=== PATIENT | male | born 2000 | race Caucasian/White ===

== ENCOUNTER 2022-01-27 12:26 | Emergency (ER) | payer OTHER, SELFPAY ==
[2022-01-27 12:26] VITALS: BP 146/93; PULSE 115; RESP 16; TEMP 36.7; O2SAT 98; BMI 38.2
--- NOTE | 2022-01-27 12:45 | CT_ITS ---
EXAM: CT MAXILLOFACIAL WITHOUT INTRAVENOUS CONTRAST CLINICAL INDICATION: Nasal Trauma TECHNIQUE: Helically acquired images were obtained of the face without intravenous contrast. This CT exam was performed using one or more of the following dose reduction techniques: automated exposure control, adjustment of the mA and/or kV according to patient size, and/or use of iterative reconstruction technique. This report was created using [employer] report generation technology. RADIATION DOSE: CTDIvol = 25.01 mGy, DLP = 573.67 mGy-cm COMPARISON: None. FINDINGS: BONES/JOINTS: Unremarkable. No displaced fracture. No discrete lytic or blastic abnormalities. SOFT TISSUES: Unremarkable. No focal subcutaneous swelling. No discrete fluid collections. ORBITS: Unremarkable. Both globes are unremarkable. Extraocular muscles are normal. Retrobulbar fat appears unremarkable. SINUSES: Mild mucosal thickening in the posterior wall of the sphenoid sinuses. Normal remaining paranasal sinuses. MASTOID AIR CELLS: Unremarkable as visualized. Clear. DENTAL: No acute findings. No periodontal osseous erosion. CT/Sinus/Facial Bone IMPRESSION: No acute fracture of the nasal bones and maxillofacial bones. Electronically Signed: Rojas Celis MD at 13:13 EDT ,
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
[2022-01-27 14:25] VITALS: PULSE 77; RESP 16; O2SAT 100
== END 2022-01-27 14:27 | disposition home or self-care (01) ==
PROVIDERS: Emergency Provider Emergency Medicine; Visit Provider Emergency Medicine
DX: S00.33XA Contusion of nose, initial encounter (principal); F90.9 Attention-deficit hyperactivity disorder, unspecified type; V86.01XA Driver of ambulance or fire engine injured in traffic accident, initial encounter
CPT/HCPCS: 70486; 99282